=== PATIENT | female | born 1940 | race Hispanic/Latino ===

== ENCOUNTER 2017-04-24 08:42 | Outpatient (CLI) | payer MEDICARE ==
--- NOTE | 2017-04-24 10:34 | Mammography Report ---
BONE DENSITY STUDY: DEFINITIONS: BMD = Bone Mineral Density T-score = BMD related to mean peak bone mass of young adult (mean expressed in Standard Deviation) Z-score = Age matched BMD expressed in SD World Health Organization (WHO) Diagnostic Criteria Normal T-score > -1 SD Osteopenia T-score between -1 and -2.4 SD Osteoporosis T-score -2.5 SD or below FINDINGS: The weighted average BMD of lumbar spine L1-L4 is 0.887 with a T-score of -1.5. The weighted average BMD of the left hip is 0.787 with a T-score of -1.3. Compared to prior exam in 2015 the overall findings of the left hip and spine have slightly worsened. IMPRESSION: The patient's average T-score is diagnostic for osteopenia and average relative risk for fracture. NOTE: BMD is not the only risk factor for fracture; also consider factors such as the patient's age, risk of falling, previous osteoporotic fracture, family history of osteoporotic fractures, current smoker, and low body weight. Lyn's triangle is a region of interest in femur, predominantly of trabecular bone. It is not a true anatomic site, and [facility] does not recommend its use clinically.
--- NOTE | 2017-04-24 10:36 | Mammography Report ---
BILATERAL MAMMOGRAM: FINDINGS: The breast tissue is heterogeneously dense, which could obscure detection of small masses (approximately 50%-75% glandular). No mass, distortion, suspicious calcification, or skin change is seen. No significant changes when compared to exams dating back to 2015. CAD was utilized. IMPRESSION: Negative mammogram. There is no mammographic evidence of malignancy. RECOMMENDATION: Follow-up per ACS guidelines. BI-RADS CATEGORY: 1 = Negative ACR BI-RADS MAMMOGRAPHIC CODES: 0 = Needs additional imaging evaluation; 1 = Negative; 2 = Benign; 3 = Probably benign; 4 = Suspicious; 5 = Malignant; 6 = Known biopsy-proven malignancy COMMENT: 1. Dense breast tissue, i.e., adenosis, fibrocystic changes, etc., may obscure an underlying neoplasm. 2. Approximately 10% of cancers are not detected with mammography. 3. A negative mammography report should not delay biopsy if a clinically suspicious mass is present. COMMENT: Patient follow-up letters are generated in [employer].
== END 2017-04-24 08:43 | disposition home or self-care (01) ==
LOC: SPVWC 08:42
DX: Z12.31 Encounter for screening mammogram for malignant neoplasm of breast (principal); M85.88 Other specified disorders of bone density and structure, other site
CPT/HCPCS: 77080; G0202; 77067

== ENCOUNTER 2018-10-10 16:56 | Emergency (ER) | payer MEDICARE ==
[2018-10-10 17:03] VITALS: BP 127/79
--- NOTE | 2018-10-10 20:43 | Cat Scan Report ---
FINAL REPORT EXAM: CT HEAD/BRAIN WO CON HISTORY: headache TECHNIQUE: 2.5 millimeter axial images from the skullbase to the vertex. 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 There is no evidence of intracranial hemorrhage or mass effect. The ventricles are normal size. There is moderate to marked atherosclerotic vascular calcification of the internal carotid arteries a nd vertebral arteries bilaterally at the skullbase. The visualized portions of the orbits, paranasal and mastoid sinuses are notable for partial opacific ation of the mastoid sinuses bilaterally. There is no evidence of fracture. There is evidence of a frontal scalp soft tissue injury with small collections of air with associated soft tissue swelling. IMPRESSION: 1. Frontal scalp soft tissue injury with small collections of air and soft tissue swelling. 2. No evidence of fracture. 3. No evidence of an acute intracranial process, intracranial hemorrhage or mass effect. 4. Moderate to marked intracranial atherosclerotic vascular calcification.
--- NOTE | 2018-10-10 21:07 | Emergency Department Report ---
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 She sustained a fall, struck her head on a concrete surface surface resulting in bleeding . The fall was unwitnessed by her . She states she is not sure if she passed out presents to fall and head injury reports headache and dizziness. No neck pain. Reports no current visual disturbances, nausea, chest pain, palpitations, vomiting, tinnitus MD Complaint: head injury -: Gradual Location: frontal Loss of Consciousness: no - Related Data Allergies/Adverse reactions: Allergies Allergy/AdvReac Type Severity Reaction Status Date / Time sulfamethoxazole Allergy Hives Verified 10/10/18 16:58 [From Bactrim] trimethoprim [From Bactrim] Allergy Hives Verified 10/10/18 16:58 ED Review of Systems ROS: Stated complaint: INJURED FOREHEAD/FELL Other details as noted in HPI Constitutional: denies: chills, fever Eyes: denies: eye pain, eye discharge, vision change ENT: denies: ear pain, throat pain Respiratory: denies: cough, shortness of breath, wheezing Cardiovascular: denies: chest pain, palpitations Endocrine: no symptoms reported Gastrointestinal: denies: abdominal pain, nausea, diarrhea Genitourinary: denies: urgency, dysuria, discharge Musculoskeletal: denies: back pain, joint swelling, arthralgia Skin: denies: rash, lesions Neurological: denies: headache, weakness, paresthesias Psychiatric: denies: anxiety, depression Hematological/Lymphatic: denies: easy bleeding, easy bruising ED Past Medical Hx - Past Medical History Additional medical history: high cholesterol, murmur due to rheumatic fever - Surgical History Hx Appendectomy: Yes Additional Surgical History: tonsills, ovarian, shoulder - Social History Smoking Status: Never Smoker Substance Use Type: None ED Physical Exam - General Limitations: No Limitations General appearance: alert, in no apparent distress - Head Head exam: Present: atraumatic, normocephalic - Eye Eye exam: Present: normal appearance, PERRL Pupils: Present: normal accommodation - ENT ENT exam: Present: normal exam, normal orophraynx, mucous membranes moist - Neck Neck exam: Present: normal inspection, full ROM - Respiratory Respiratory exam: Present: normal lung sounds bilaterally. Absent: respiratory distress, wheezes, rales, chest wall tenderness, accessory muscle use - Cardiovascular Cardiovascular Exam: Present: regular rate, normal rhythm. Absent: systolic murmur, diastolic murmur, rubs, gallop - GI/Abdominal GI/Abdominal exam: Present: soft, normal bowel sounds. Absent: distended, tenderness - Extremities Exam Extremities exam: Present: normal inspection, full ROM, normal capillary refill - Back Exam Back exam: Present: normal inspection. Absent: CVA tenderness (R), CVA tenderness (L) - Neurological Exam Neurological exam: Present: alert, oriented X3 - Psychiatric Psychiatric exam: Present: normal affect, normal mood - Skin Skin exam: Present: warm, dry, normal color. Absent: intact (chair. She has broken skin to the frontal region of her forehead and a stellate fashion and a hematoma below the injury site), rash ED Course Vital Signs 10/10/18 17:00 Temperature 97.7 F Pulse Rate 90 Respiratory 20 Rate Blood Pressure 127/79 O2 Sat by Pulse 97 Oximetry - Laceration /Wound Repair Head Wound Location: head Wound Length (cm): 2 Wound's Depth, Shape: irregular, stellate Betadine Prep?: Yes Wound Repaired With: Dermabond Critical care attestation.: If time is entered above; I have spent that time in minutes in the direct care of this critically ill patient, excluding procedure time. ED Disposition Clinical Impression: Head injury, Laceration of head Disposition: - TO HOME OR SELFCARE Is pt being admited?: No Does the pt Need Aspirin: No Condition: Stable Instructions: Skin Adhesive Care (ED), Concussion (ED), Minor Head Injury (ED) Referrals: DREAD TRAN PA [Primary Care Provider] - 3-5 Days
== END 2018-10-10 21:15 | disposition home or self-care (01) ==
LOC: ED 16:56
DX: S01.81XA Laceration without foreign body of other part of head, initial encounter (principal); E78.00 Pure hypercholesterolemia, unspecified; Z90.49 Acquired absence of other specified parts of digestive tract; Z88.2 Allergy status to sulfonamides; W18.39XA Other fall on same level, initial encounter; Y93.89 Activity, other specified; Y92.89 Other specified places as the place of occurrence of the external cause; Y99.8 Other external cause status
CPT/HCPCS: 70450; 99283